=== PATIENT | female | born 1970 | race American Indian/Alaskan Native ===

== ENCOUNTER 2017-08-09 13:18 | Outpatient (CLI) | payer OTHER ==
[~2017-08-09 13:18] MED LIST: M/A
== END 2017-08-09 13:33 | disposition home or self-care (01) ==
LOC: MRI 13:18
DX: M48.061 Spinal stenosis, lumbar region without neurogenic claudication (principal)
CPT/HCPCS: 72148

== ENCOUNTER 2017-08-09 13:21 | Outpatient (CLI) | payer OTHER | END 2017-08-09 13:33 | disposition home or self-care (01) | LOC: RAD 13:21 | DX: M48.061 Spinal stenosis, lumbar region without neurogenic claudication (principal) ==

== ENCOUNTER 2018-06-17 10:36 | Outpatient (CLI) | payer OTHER | END 2018-06-17 10:42 | disposition home or self-care (01) | LOC: LAB 10:36 | DX: D68.8 Other specified coagulation defects (principal) ==